=== PATIENT | female | born 1990 | race Caucasian/White ===

== ENCOUNTER 2016-12-24 12:52 | Inpatient (IN) | payer SELFPAY ==
[~2016-12-24] VITALS: Ht 160 cm; Wt 88.9 kg
[2016-12-24] VITALS (9 sets, daily range): BP systolic 115–136; BP diastolic 67–98
[~2016-12-24 12:52] MED LIST: ERRIN0.35 MG PO; Motrin PO; NAPROXEN500 MG PO; NEXIUM20 MG PO; PERCOCET 5/31 TABLET PO; PRENATAL TABLE1 EAC3 PO
[2016-12-24 15:36] LABS: HEMATOCRIT 34.6 % (36.0-46.0); MCH 27.9 PG (29.0-34.0); MCHC 32.9 G/DL (30.0-36.0); MCV 84.8 FL (83-99); MEAN PLAT.VOLUME 12.4 uM^3 (9.5-12.4); PLATELET COUNT 138 K/uL (156-360); RBC DIS.WIDTH-CV 13.1 % (11.8-14.6); RBC DIS.WIDTH-SD 39.8 % (39-53); RED BLOOD COUNT 4.08 M/uL (3.80-5.20); WHITE BLOOD COUNT 10.2 K/uL (4.1-10.2)
[2016-12-24 15:40] LABS: EOSINOPHIL (%) 0.5 % (0-5); EOSINOPHIL COUNT 0.1 K/uL (0-0.3); IMMATURE GRANULOCYTE (%) 0.4 % (0.0-0.7); MONOCYTE (%) 5.9 % (3-12); MONOCYTE COUNT 0.6 K/uL (0-0.8); NEUTROPHIL (%) 83.1 % (45-76); NEUTROPHIL COUNT 8.5 K/uL (1.8-6.4)
[2016-12-25 00:10] VITALS: BP 122/75
[2016-12-25 06:14] LABS: EOSINOPHIL (%) 0.6 % (0-5); EOSINOPHIL COUNT 0.1 K/uL (0-0.3); HEMATOCRIT 29.5 % (36.0-46.0); IMMATURE GRANULOCYTE (%) 0.4 % (0.0-0.7); MCH 27.9 PG (29.0-34.0); MCHC 32.9 G/DL (30.0-36.0); MCV 84.8 FL (83-99); MEAN PLAT.VOLUME 12.3 uM^3 (9.5-12.4); MONOCYTE (%) 7.2 % (3-12); MONOCYTE COUNT 0.7 K/uL (0-0.8); NEUTROPHIL (%) 81.6 % (45-76); NEUTROPHIL COUNT 7.9 K/uL (1.8-6.4); PLATELET COUNT 127 K/uL (156-360); RBC DIS.WIDTH-CV 13.3 % (11.8-14.6); RBC DIS.WIDTH-SD 40.3 % (39-53); RED BLOOD COUNT 3.48 M/uL (3.80-5.20); WHITE BLOOD COUNT 9.7 K/uL (4.1-10.2)
[2016-12-25 08:38] VITALS: BP 126/62
[2016-12-25 15:25] VITALS: BP 139/74
== END 2016-12-25 23:30 | disposition home or self-care (01) | DRG 775 ==
LOC: LDRP-OP 12:52 → 2WEST 12:53 → LDRP-OP 01-28 11:11
PROVIDERS: Advanced Practice Midwife
DX: O70.1 Second degree perineal laceration during delivery (principal); O99.02 Anemia complicating childbirth; D62 Acute posthemorrhagic anemia; O99.344 Other mental disorders complicating childbirth; F41.9 Anxiety disorder, unspecified; F32.9 Major depressive disorder, single episode, unspecified; Z3A.39 39 weeks gestation of pregnancy; Z37.0 Single live birth
CPT/HCPCS: 85025